=== PATIENT | male | born 1930 | race Caucasian/White ===

== ENCOUNTER → 2016-11-23 | Outpatient (CLI) | payer MEDICARE ==
[~2016-11-23] MED LIST: ALBU17IN INH; ATOR40TA PO; DRIS50002 PO; K-TA10TA2 PO; LEVA750T PO; NORV5TAB PO; PANT40TA2 PO; TAMS0.4C2 PO; TESS100C PO; TRIA37.53 PO; VITMTA PO; [UNRECOGNIZED DRUG - CODE] IM
--- NOTE | 2016-11-23 15:19 | REP ---
Chest x-ray: Two views. History: Cough. Comparison chest x-rays is from November 05, 2015. Findings: The lungs are well inflated and free of infiltrate. Pleural angles are sharp. Heart size is normal. There are some degenerative changes in the thoracic spine. The aorta is calcific and a little tortuous. Pulmonary vasculature is not increased. Impression: No active disease. Signed by Suleiman Vazquez MD 11/23/2016 04:26 P
== END ==
LOC: M SMT 14:47
PROVIDERS: ATTEND Internal Medicine Pulmonary Disease
DX: R05 Cough (principal)

== ENCOUNTER → 2017-09-23 | Outpatient (REF) | payer MEDICARE ==
[~2017-09-23] MED LIST changes: -ATOR40TA PO; +ATOR40TA75 PO; -LEVA750T PO; +LEVA750T7 PO
== END ==
LOC: M SFHCPLAZ 09:07
PROVIDERS: ATTEND Family Medicine
DX: E29.1 Testicular hypofunction (principal)

== ENCOUNTER → 2018-03-08 | Outpatient (REF) | payer MEDICARE ==
[2018-03-08 15:55] LABS: TESTOSTERONE 23 NG/DL (241-827)
== END ==
LOC: M SFHCPLAZ 12:47
DX: E29.1 Testicular hypofunction (principal)
CPT/HCPCS: 84403

== ENCOUNTER → 2018-03-17 | Outpatient (REF) | payer MEDICARE ==
[2018-03-17 16:09] LABS: TESTOSTERONE 20 NG/DL (241-827)
[2018-03-17 16:10] LABS: FOLLICLE STIMULATING HORMONE 44.8 mIU/mL (1.4-18.1); LUTEINIZING HORMONE 31.6 mIU/mL (3.1-34.6); PROLACTIN 5.7 NG/ML (2.1-17.7)
== END ==
LOC: M SFHCPLAZ 13:24
DX: E29.1 Testicular hypofunction (principal)
CPT/HCPCS: 83001

== ENCOUNTER → 2018-10-10 | Outpatient (REF) | payer MEDICARE ==
[2018-10-10 20:45] LABS: ANION GAP 6 MEQ/L (8-16); BLOOD UREA NITROGEN 20 MG/DL (7-18); CALCIUM LEVEL 9.9 MG/DL (8.8-10.2); CARBON DIOXIDE LEVEL 30 MEQ/L (21-32); CHLORIDE LEVEL 105 MEQ/L (98-107); CHOLESTEROL LEVEL 192 MG/DL (<200); CHOLESTEROL RISK RATIO 3.096 (<5); CREATININE FOR GFR 1.14 MG/DL (0.70-1.30); GLOMERULAR FILTRATION RATE > 60.0 (>35); GLUCOSE, FASTING 120 MG/DL (70-100); HDL CHOLESTEROL 62 MG/DL (>40); LDL CHOLESTEROL 87 MG/DL (<100); NON-HDL-C 130 MG/DL; POTASSIUM SERUM 4.8 MEQ/L (3.5-5.1); PSA SCREENING 0.2 NG/ML (< 4.0); SODIUM LEVEL 141 MEQ/L (136-145); TRIGLYCERIDES LEVEL 214 MG/DL (<150)
[2018-10-10 20:49] LABS: TESTOSTERONE 21 NG/DL (241-827); TOTAL 25(OH) VITAMIN D 30.5 NG/ML (30.0-100.0)
== END ==
LOC: M SFHCADAM 13:15
DX: E78.2 Mixed hyperlipidemia (principal); N40.1 Benign prostatic hyperplasia with lower urinary tract symptoms; E29.1 Testicular hypofunction; E55.9 Vitamin D deficiency, unspecified
CPT/HCPCS: 84403